=== PATIENT | male | born 1950 | race Caucasian/White ===

== ENCOUNTER 2017-02-05 06:35 | Day surgery (SDC) | payer MEDICARE, BC ==
[~2017-02-05] VITALS: Ht 177.8 cm; Wt 97.2 kg
[~2017-02-05 06:35] MED LIST: ALLOPURINOL100 MG PO; AMBIEN 10MG10 MG PO; AMOXICILLIN 8751 TAB PO; ASPIR-LOW81 MG PO; ASPIRIN 81M81 MG/TA2 PO; CALCIUM + D 6001 TA1 PO; CALCIUM + D 6001 TAB PO; CARAFATE 1GM1 G PO; CARDI-OMEGA1000 MG PO; CARDURA 2MG2 MG PO; CARDURA4 MG PO; CENTRUM SILVER1 TA1 PO; CRESTOR 10MG10 MG PO; DOXAZOCIN; DUO-KAPS1 CAP PO; FISH OIL CONC1000 MG PO; FISH OIL CONCEN1 SG1 PO; FLOMAX 0.40.4 MG/CAP PO; INDERAL40 MG PO; MAGNESIUM250 M1 PO; NAUSEA MED; NORCO 325 MG-51 TAB PO; PRILOSEC 20MG20 MG PO; SIMVASTATIN10 MG PO; VENOFER; ZYLOPRIM 100MG100 MG PO; cholesterol med
[2017-02-05 06:57] VITALS: BP 167/87; PULSE 67; TEMP 97.9
[2017-02-05] MEDS ORDERED: DESYREL 50MG50 MG PO (07:30)
[2017-02-05] MEDS ORDERED: REMERON 15M15 MG/TA1 PO (07:31)
[2017-02-05 08:35] VITALS: BP 135/71; PULSE 64; TEMP 97.8
[2017-02-05 09:00] VITALS: BP 131/74; PULSE 97
[2017-02-05 09:15] VITALS: BP 125/72; PULSE 95
[2017-02-05 09:30] VITALS: BP 147/78; PULSE 64
[2017-02-05 09:35] VITALS: BP 107/64; PULSE 63
[2017-03-03] MEDS ORDERED: ASPIRIN 81M81 MG/TA2 PO (12:33)
[2017-03-03] MEDS ORDERED: VITAMIN E1000 U/CAP PO (12:34)
== END 2017-02-05 09:45 | disposition home or self-care (01) ==
LOC: SDCO 06:35
DX: Z12.11 Encounter for screening for malignant neoplasm of colon (principal); D50.9 Iron deficiency anemia, unspecified; K21.9 Gastro-esophageal reflux disease without esophagitis; K25.3 Acute gastric ulcer without hemorrhage or perforation; K31.89 Other diseases of stomach and duodenum; K57.30 Diverticulosis of large intestine without perforation or abscess without bleeding; I10 Essential (primary) hypertension; Z86.010 Personal history of colon polyps; Z90.49 Acquired absence of other specified parts of digestive tract; Z93.4 Other artificial openings of gastrointestinal tract status
CPT/HCPCS: 43239; G0105; J2250; J3010

== ENCOUNTER → 2018-08-16 | Outpatient (CLI) | payer MEDICARE, OTHER ==
[~2018-08-16] MED LIST changes: +DESYREL 50MG50 MG PO; +REMERON 15M15 MG/TA1 PO; +VITAMIN E1000 U/CAP PO
== END ==
LOC: COL.RAD 13:53
DX: I67.89 Other cerebrovascular disease (principal); F80.1 Expressive language disorder
CPT/HCPCS: A9585

== ENCOUNTER 2018-08-24 15:39 | Emergency (ER) | payer MEDICARE, OTHER ==
[~2018-08-24] VITALS: Ht 175.3 cm; Wt 84.5 kg
[2018-08-24 15:44] VITALS: TEMP 97
[2018-08-24 16:55] LABS: BASO # 0.1 (0.0-0.2); BASO % 0.8 % (0.0-2.0); EOS # 0.2 (0.0-0.7); EOS % 3.4 % (0-4.0); GRAN # 4.4 (1.4-6.5); GRAN % 68.3 % (42.2-75.2); HEMOGLOBIN 11.4 g/dl (13.5-18.0); LYMPH % 16.1 % (20.0-51.0); MEAN CELL VOLUME 85 fl (80.0-100.0); MEAN CORPUSCULAR HEMOGLOBIN 27 pg (27.0-31.0); MEAN CORPUSCULAR HGB CONC 32 g/dl (33.0-37.0); MEAN PLATELET VOLUME 9.6 fl (7.4-10.4); MONO # 0.7 (0.1-0.6); MONO % 10.8 % (1.7-9.3); PLATELET COUNT 184 K/mm3 (130-400); RED BLOOD COUNT 4.24 M/mm3 (4.20-5.60); REDCELL DISTRIBUTION WIDTH-CV 17.5 % (11.5-14.5)
[2018-08-24 16:56] LABS: HEMATOCRIT 36.1 % (42.0-52.0)
[2018-08-24 17:35] LABS: ALANINE AMINOTRANSFERASE 34 U/L (21-72); ALBUMIN 3.1 gm/dL (3.5-5.0); ALKALINE PHOSPHATASE 172 U/L (50-136); ANION GAP 4 mmol/L (7-16); AST,SGOT 42 U/L (15-37); BILIRUBIN,TOTAL 0.4 mg/dL (0.0-1.0); BLOOD UREA NITROGEN 9 mg/dL (9-20); CALCIUM 8.7 mg/dL (8.4-10.2); CARBON DIOXIDE 26 mmol/L (22-30); CHLORIDE 98 mmol/L (98-107); GLUCOSE 102 mg/dL (74-106); POTASSIUM 4.2 mmol/L (3.4-5.0); SODIUM 129 mmol/L (137-145); TOTAL PROTEIN 6.2 gm/dL (6.4-8.2)
[2018-08-24 17:51] LABS: TROPONIN-I < 0.012 ng/mL (0.000-0.034)
[2018-08-24] MEDS ORDERED: PLAVIX 75MG TAB75 MG PO (18:03)
[2018-08-24] MEDS ORDERED: MAGNESIUM250 M1 PO ×2 (18:06)
[2018-08-24] MEDS ORDERED: CALCIUM 600-D 61 TAB PO (18:06)
[2018-08-24] MEDS ORDERED: EPA FISH OIL1 SGL PO (18:07)
[2018-08-24] MEDS ORDERED: MULTI VITAMINS1 TAB PO (18:07)
[2018-08-24 19:25] VITALS: BP 135/72; PULSE 75
== END 2018-08-24 19:26 | disposition short-term general hospital (02) ==
LOC: COL.ER 15:39
PROVIDERS: Emergency Medicine
DX: I69.351 Hemiplegia and hemiparesis following cerebral infarction affecting right dominant side (principal); I69.328 Other speech and language deficits following cerebral infarction; I10 Essential (primary) hypertension; E78.5 Hyperlipidemia, unspecified; Z79.02 Long term (current) use of antithrombotics/antiplatelets
CPT/HCPCS: A9585

== ENCOUNTER 2018-09-12 12:38 | Outpatient (RCR) | payer MEDICARE, OTHER ==
[~2018-09-12 12:38] MED LIST changes: +CALCIUM 600-D 61 TAB PO; +EPA FISH OIL1 SGL PO; +MULTI VITAMINS1 TAB PO; +PLAVIX 75MG TAB75 MG PO
== END 2018-09-27 10:12 | disposition home or self-care (01) ==
LOC: WSST 12:38
DX: I69.328 Other speech and language deficits following cerebral infarction (principal); I10 Essential (primary) hypertension

== ENCOUNTER 2018-10-01 13:52 | Emergency (ER) | payer MEDICARE, OTHER ==
[~2018-10-01] VITALS: Ht 175.3 cm; Wt 86.4 kg
[2018-10-01 13:58] VITALS: TEMP 97.3
[2018-10-01 14:26] LABS: BASO % 0.5 % (0.0-2.0); EOS # 0.1 (0.0-0.7); EOS % 1.5 % (0-4.0); GRAN % 79.4 % (42.2-75.2); LYMPH # 0.6 (1.2-3.4); LYMPH % 8.2 % (20.0-51.0); MEAN CELL VOLUME 84 fl (80.0-100.0); MEAN CORPUSCULAR HEMOGLOBIN 27 pg (27.0-31.0); MEAN CORPUSCULAR HGB CONC 32 g/dl (33.0-37.0); MEAN PLATELET VOLUME 9.4 fl (7.4-10.4); MONO # 0.7 (0.1-0.6); MONO % 9.7 % (1.7-9.3); PLATELET COUNT 160 K/mm3 (130-400); RED BLOOD COUNT 3.77 M/mm3 (4.20-5.60); REDCELL DISTRIBUTION WIDTH-CV 15.9 % (11.5-14.5)
[2018-10-01 14:28] LABS: HEMATOCRIT 31.6 % (42.0-52.0)
[2018-10-01 14:32] LABS: INR 1.3 (0.8-3.0); PROTHROMBIN TIME 14.9 SECONDS (9.7-12.8)
[2018-10-01 14:52] LABS: ALBUMIN 1.8 gm/dL (3.5-5.0); BILIRUBIN,TOTAL 0.3 mg/dL (0.0-1.0); CALCIUM 7.5 mg/dL (8.4-10.2); CREATININE, serum 0.86 mg/dL (0.66-1.25); POTASSIUM 4.5 mmol/L (3.4-5.0); TOTAL PROTEIN 4.6 gm/dL (6.4-8.2)
[2018-10-01 15:20] VITALS: BP 127/67; PULSE 78
[2018-10-01] MEDS ORDERED: FERROUS SU325 MG/TAB PO (17:08)
== END 2018-10-01 15:21 | disposition home or self-care (01) ==
LOC: COL.ER 13:52
PROVIDERS: Emergency Medicine
DX: R04.0 Epistaxis (principal); K21.9 Gastro-esophageal reflux disease without esophagitis; C16.9 Malignant neoplasm of stomach, unspecified; Z79.02 Long term (current) use of antithrombotics/antiplatelets

== ENCOUNTER 2018-10-01 16:44 | Emergency (ER) | payer MEDICARE, OTHER ==
[~2018-10-01] VITALS: Ht 175.3 cm; Wt 86.4 kg
[2018-10-01 16:49] VITALS: TEMP 97.9
[2018-10-01] MEDS ORDERED: FERROUS SU325 MG/TAB PO (17:08)
[2018-10-01 18:01] VITALS: BP 119/76; PULSE 79
== END 2018-10-01 18:02 | disposition home or self-care (01) ==
LOC: COL.ER 16:44
DX: R04.0 Epistaxis (principal); I25.10 Atherosclerotic heart disease of native coronary artery without angina pectoris; Z79.02 Long term (current) use of antithrombotics/antiplatelets

== ENCOUNTER 2018-10-03 16:36 | Emergency (ER) | payer MEDICARE, OTHER ==
[~2018-10-03] VITALS: Ht 175.3 cm; Wt 87.3 kg
[~2018-10-03 16:36] MED LIST changes: +FERROUS SU325 MG/TAB PO
[2018-10-03 16:38] VITALS: TEMP 97.7
[2018-10-03 17:03] LABS: BASO % 0.3 % (0.0-2.0); EOS % 0.6 % (0-4.0); GRAN # 5.5 (1.4-6.5); GRAN % 82.8 % (42.2-75.2); LYMPH # 0.6 (1.2-3.4); LYMPH % 9.5 % (20.0-51.0); MEAN CELL VOLUME 85 fl (80.0-100.0); MEAN CORPUSCULAR HGB CONC 31 g/dl (33.0-37.0); MEAN PLATELET VOLUME 9.6 fl (7.4-10.4); MONO # 0.4 (0.1-0.6); MONO % 6.2 % (1.7-9.3); PLATELET COUNT 185 K/mm3 (130-400); RED BLOOD COUNT 3.56 M/mm3 (4.20-5.60); REDCELL DISTRIBUTION WIDTH-CV 15.7 % (11.5-14.5)
[2018-10-03 17:04] LABS: HEMATOCRIT 30.2 % (42.0-52.0); HEMOGLOBIN 9.4 g/dl (13.5-18.0); MEAN CORPUSCULAR HEMOGLOBIN 26 pg (27.0-31.0)
[2018-10-03 17:18] LABS: ALBUMIN 2.2 gm/dL (3.5-5.0); BILIRUBIN,TOTAL 0.3 mg/dL (0.0-1.0); C-REACTIVE PROTEIN 1.6 mg/dL (0.0-0.9); CALCIUM 7.8 mg/dL (8.4-10.2); CREATININE, serum 0.8 mg/dL (0.66-1.25); POTASSIUM 4.1 mmol/L (3.4-5.0); TOTAL PROTEIN 5.4 gm/dL (6.4-8.2)
[2018-10-03 21:58] VITALS: BP 155/87; PULSE 69
== END 2018-10-03 21:59 | disposition short-term general hospital (02) ==
LOC: COL.ER 16:36
PROVIDERS: Family Medicine
DX: J90 Pleural effusion, not elsewhere classified (principal); C16.9 Malignant neoplasm of stomach, unspecified; I26.99 Other pulmonary embolism without acute cor pulmonale; R55 Syncope and collapse; Z79.02 Long term (current) use of antithrombotics/antiplatelets
CPT/HCPCS: J7030; Q9967

== ENCOUNTER 2018-10-14 09:13 | Emergency (ER) | payer MEDICARE, OTHER ==
[~2018-10-14] VITALS: Ht 175.3 cm; Wt 86.4 kg
[2018-10-14 09:19] VITALS: TEMP 98.7
[2018-10-14] MEDS ORDERED: CEPHALEXIN500 M1 PO (09:45)
[2018-10-14 09:49] LABS: BASO % 0.7 % (0.0-2.0); EOS # 0.1 (0.0-0.7); EOS % 1.6 % (0-4.0); GRAN # 4.1 (1.4-6.5); GRAN % 70.4 % (42.2-75.2); HEMATOCRIT 29.9 % (42.0-52.0); HEMOGLOBIN 9.1 g/dl (13.5-18.0); LYMPH # 0.8 (1.2-3.4); LYMPH % 14.1 % (20.0-51.0); MEAN CELL VOLUME 82 fl (80.0-100.0); MEAN CORPUSCULAR HEMOGLOBIN 25 pg (27.0-31.0); MEAN CORPUSCULAR HGB CONC 30 g/dl (33.0-37.0); MEAN PLATELET VOLUME 10.2 fl (7.4-10.4); MONO # 0.7 (0.1-0.6); MONO % 12.7 % (1.7-9.3); PLATELET COUNT 180 K/mm3 (130-400); RED BLOOD COUNT 3.66 M/mm3 (4.20-5.60); REDCELL DISTRIBUTION WIDTH-CV 15.7 % (11.5-14.5)
[2018-10-14 09:54] LABS: INR 2.4 (0.8-3.0); PROTHROMBIN TIME 27.5 SECONDS (9.7-12.8)
[2018-10-14 09:57] LABS: PARTIAL THROMBOPLASTIN TIME 42.2 SECONDS (26.0-37.0)
[2018-10-14 09:59] LABS: CALCIUM 7.3 mg/dL (8.4-10.2); CREATININE, serum 0.81 mg/dL (0.66-1.25); POTASSIUM 3.8 mmol/L (3.4-5.0)
[2018-10-14] MEDS ORDERED: AMOXICILLIN 50500 MG PO (10:25)
[2018-10-14] MEDS ORDERED: BIAXIN 500MG T500 MG PO (10:26)
[2018-10-14] MEDS ORDERED: LOVENOX 100100 MG/ML SQ (10:26)
[2018-10-14] MEDS ORDERED: JANTOVEN2 MG (10:27)
[2018-10-14 10:32] VITALS: BP 131/84; PULSE 76
== END 2018-10-14 10:40 | disposition home or self-care (01) ==
LOC: COL.ER 09:13
PROVIDERS: Emergency Medicine
DX: R04.0 Epistaxis (principal); Z79.01 Long term (current) use of anticoagulants

== ENCOUNTER 2018-10-17 15:44 | Inpatient (IN) | payer MEDICARE, OTHER ==
[~2018-10-17] VITALS: Ht 175.3 cm; Wt 84.1 kg
[~2018-10-17 15:44] MED LIST changes: +AMOXICILLIN 50500 MG PO; +BIAXIN 500MG T500 MG PO; +CEPHALEXIN500 M1 PO; +JANTOVEN2 MG; +LOVENOX 100100 MG/ML SQ
[2018-10-17 16:51] LABS: BASO % 0.4 % (0.0-2.0); EOS # 0.1 (0.0-0.7); EOS % 1.3 % (0-4.0); GRAN # 3.9 (1.4-6.5); GRAN % 74.4 % (42.2-75.2); LYMPH # 0.7 (1.2-3.4); LYMPH % 12.9 % (20.0-51.0); MEAN CELL VOLUME 79 fl (80.0-100.0); MEAN CORPUSCULAR HGB CONC 32 g/dl (33.0-37.0); MEAN PLATELET VOLUME 10.1 fl (7.4-10.4); MONO # 0.5 (0.1-0.6); MONO % 9.8 % (1.7-9.3); PLATELET COUNT 185 K/mm3 (130-400); RED BLOOD COUNT 3.73 M/mm3 (4.20-5.60); REDCELL DISTRIBUTION WIDTH-CV 15.9 % (11.5-14.5)
[2018-10-17 17:06] LABS: ALANINE AMINOTRANSFERASE 46 U/L (21-72); ALBUMIN 2.2 gm/dL (3.5-5.0); ALKALINE PHOSPHATASE 561 U/L (50-136); ANION GAP 4 mmol/L (7-16); AST,SGOT 47 U/L (15-37); BILIRUBIN,TOTAL 0.4 mg/dL (0.0-1.0); BLOOD UREA NITROGEN 15 mg/dL (9-20); C-REACTIVE PROTEIN 2.5 mg/dL (0.0-0.9); CALCIUM 7.5 mg/dL (8.4-10.2); CARBON DIOXIDE 25 mmol/L (22-30); CHLORIDE 100 mmol/L (98-107); CREATININE, serum 0.81 mg/dL (0.66-1.25); GLUCOSE 111 mg/dL (74-106); SODIUM 129 mmol/L (137-145); TOTAL PROTEIN 5.4 gm/dL (6.4-8.2)
[2018-10-17 17:10] LABS: HEMATOCRIT 29.5 % (42.0-52.0); HEMOGLOBIN 9.3 g/dl (13.5-18.0); MEAN CORPUSCULAR HEMOGLOBIN 25 pg (27.0-31.0)
[2018-10-17 17:12] LABS: INR 3.6 (0.8-3.0); PROTHROMBIN TIME 41.2 SECONDS (9.7-12.8)
[2018-10-17 17:15] LABS: TROPONIN-I < 0.012 ng/mL (0.000-0.035)
--- NOTE | 2018-10-17 20:50 | NUR ---
Patient arrived to room 306. Patient ambulatory, alert and oriented x4. Sitting up.
[2018-10-17 20:59] VITALS: BP 116/61; PULSE 85; TEMP 97.9
--- NOTE | 2018-10-17 21:47 | NUR ---
PT ASKED FOR TX. STATED HE FELT BETTER AFTER TX.
--- NOTE | 2018-10-17 22:28 | NUR ---
Assessment completed- lung sounds- some course sounds heard. Patient has cough- non productive at this time. Denies pain. Heart sounds S1 and S2 heard. Pulses +3. Pt reports tingling in right toes- unable to move around toes. Pt reports dizziness when standing. Alert and oriented x4. IV site to left AC free of complications- flushed and no redness/edema. No further needs at this time.
[2018-10-17 23:55] VITALS: BP 111/51; PULSE 77; TEMP 98.1
--- NOTE | 2018-10-18 02:24 | NUR ---
PT REFUSED. WANTS TO SLEEP.
[2018-10-18 04:17] VITALS: BP 140/63; PULSE 81; TEMP 98.7
--- NOTE | 2018-10-18 05:20 | NUR ---
Patient slept on/off last night. Some mild N/V, relieved on its own. Still reports numbness in right toes, still unable to move them much. No reports of pain, VSS.
[2018-10-18 06:10] LABS: BASO % 0.4 % (0.0-2.0); EOS # 0.1 (0.0-0.7); EOS % 1.7 % (0-4.0); GRAN # 3.2 (1.4-6.5); GRAN % 66.9 % (42.2-75.2); LYMPH # 0.9 (1.2-3.4); LYMPH % 19.5 % (20.0-51.0); MEAN CELL VOLUME 80 fl (80.0-100.0); MEAN CORPUSCULAR HGB CONC 31 g/dl (33.0-37.0); MEAN PLATELET VOLUME 10.9 fl (7.4-10.4); MONO # 0.5 (0.1-0.6); MONO % 10.4 % (1.7-9.3); PLATELET COUNT 171 K/mm3 (130-400); RED BLOOD COUNT 3.15 M/mm3 (4.20-5.60)
[2018-10-18 06:11] LABS: INR 3.3 (0.8-3.0); PROTHROMBIN TIME 37.9 SECONDS (9.7-12.8)
[2018-10-18 06:13] LABS: HEMATOCRIT 25.3 % (42.0-52.0); HEMOGLOBIN 7.8 g/dl (13.5-18.0); MEAN CORPUSCULAR HEMOGLOBIN 25 pg (27.0-31.0)
[2018-10-18 06:20] LABS: ALANINE AMINOTRANSFERASE 39 U/L (21-72); ALBUMIN 1.7 gm/dL (3.5-5.0); ALKALINE PHOSPHATASE 461 U/L (50-136); ANION GAP 2 mmol/L (7-16); AST,SGOT 33 U/L (15-37); BILIRUBIN,TOTAL < 0.1 mg/dL (0.0-1.0); BLOOD UREA NITROGEN 15 mg/dL (9-20); CALCIUM 7.1 mg/dL (8.4-10.2); CARBON DIOXIDE 26 mmol/L (22-30); CHLORIDE 105 mmol/L (98-107); CREATININE, serum 0.79 mg/dL (0.66-1.25); GLUCOSE 87 mg/dL (74-106); POTASSIUM 3.7 mmol/L (3.4-5.0); SODIUM 133 mmol/L (137-145); TOTAL PROTEIN 4.3 gm/dL (6.4-8.2)
[2018-10-18 08:14] VITALS: BP 130/65; PULSE 85; TEMP 98.9
--- NOTE | 2018-10-18 08:44 | NUR ---
Pt is awake and A/Ox4, resting in bed. He states he is having some mild shortness of breath after coughing spells. States the tessalon perles are working for cough. He denies pain. Saline lock to left AC is free of complications. Pt remains on room air, resp. even and unlabored at rest. Some mild dyspnea noted after coughing. Lungs are coarse with insp/exp. wheezing noted. Pt was updated on plan of care, expressed understnaidn. Denies any other needs.
[2018-10-18 11:16] LABS: COLLECTION METHOD CLEAN CATCH
[2018-10-18 11:31] LABS: MUCOUS Present /lpf; PH 6 (5-8); SQUAMOUS EPITHELIAL None Seen /hpf; URINE APPEARANCE Clear; URINE BACTERIA None Seen /hpf; URINE BILIRUBIN Negative (NEGATIVE); URINE BLOOD 2+ (NEGATIVE); URINE COLOR Yellow; URINE GLUCOSE Negative (NEGATIVE); URINE KETONE Negative (NEGATIVE); URINE LEUKOCYTE ESTERASE Negative (NEGATIVE); URINE NITRATE Negative (NEGATIVE); URINE PROTEIN(semi-quant) Negative (NEGATIVE); URINE UROBILINOGEN Negative (NEGATIVE)
[2018-10-18 12:15] VITALS: BP 116/56; PULSE 88; TEMP 97.9
--- NOTE | 2018-10-18 14:36 | NUR ---
SW met with patient about discharge planning. Patient lives at home with his son. Patient's PCP is Dr Valentin Soni and he [facility]. Patient recently started using a cane for ambulation but no other DME is reported. Patient also does not use any home health services. Patient has a DPOA and copies are in the EMR. NAVEEN does not anticipate any discharge needs.
[2018-10-18 16:51] VITALS: BP 140/59; PULSE 68; TEMP 97.7
[2018-10-18 20:21] VITALS: BP 150/79; PULSE 108; TEMP 98.5
--- NOTE | 2018-10-18 21:00 | NUR ---
Patient resting in bed watching tv. Denies pain. Assessment completed, IV site flushed, no redness/edema. Coughing- unable to produce any sputum. Evening medications administered. No further needs at this time.
[2018-10-18 23:12] VITALS: BP 138/76; PULSE 94; TEMP 98.5
[2018-10-19] VITALS (9 sets, daily range): BP systolic 120–157; BP diastolic 63–82; PULSE 79–941; TEMP 97.3–98.5
--- NOTE | 2018-10-19 01:58 | NUR ---
RA SPO2 80%. PLACED ON 2 LPM NC 92% RN NOTIFIED
--- NOTE | 2018-10-19 05:34 | NUR ---
Patient had difficulty sleeping last night. Cough kept him awake for some of the night. Last night during rounds RT put on 2L of oxygen as Sp02 had dropped into the 80's while sleeping. No reports of pain. No further needs at this time.
[2018-10-19 06:03] LABS: RETIC # 0.05 M/mm3 (0.02-0.16); RETIC % 1.7 % (0.5-3.52)
[2018-10-19 06:04] LABS: MEAN CELL VOLUME 81 fl (80.0-100.0); MEAN CORPUSCULAR HGB CONC 30 g/dl (33.0-37.0); MEAN PLATELET VOLUME 9.9 fl (7.4-10.4); PLATELET COUNT 161 K/mm3 (130-400); RED BLOOD COUNT 3.11 M/mm3 (4.20-5.60); REDCELL DISTRIBUTION WIDTH-CV 16.1 % (11.5-14.5)
[2018-10-19 06:14] LABS: HEMATOCRIT 25.3 % (42.0-52.0); HEMOGLOBIN 7.7 g/dl (13.5-18.0); MEAN CORPUSCULAR HEMOGLOBIN 25 pg (27.0-31.0)
[2018-10-19 06:31] LABS: ALBUMIN 1.8 gm/dL (3.5-5.0); BILIRUBIN,TOTAL 0.2 mg/dL (0.0-1.0); CALCIUM 7.1 mg/dL (8.4-10.2); CREATININE, serum 0.74 mg/dL (0.66-1.25); POTASSIUM 4.1 mmol/L (3.4-5.0); TOTAL PROTEIN 4.5 gm/dL (6.4-8.2)
[2018-10-19 06:32] LABS: INR 1.6 (0.8-3.0); PROTHROMBIN TIME 18.2 SECONDS (9.7-12.8)
[2018-10-19 07:03] LABS: IRON,SERUM 11 ug/dL (35-150); TOTAL IRON BINDING CAPACITY 206 ug/dL (261-462)
[2018-10-19 07:23] LABS: FERRITIN 5 ng/mL (18-464)
[2018-10-19 08:16] LABS: BAND 8 % (0-10); EOSINOPHIL 3 % (0-4); LYMPHOCYTE 17 % (20.0-51.0); NEUTROPHILS 72 % (42.0-75.2); OVALOCYTES 1+
[2018-10-19 08:17] LABS: PLATELET ESTIMATE NORMAL (NORMAL)
--- NOTE | 2018-10-19 08:39 | NUR ---
Pt assessment complete. Pt laying in bed upon entry, he is A/O x3. His breathing is even and unlabored on 2L O2 via NC. Pt reports dyspnea at rest. No pain at this time. Pt denies N/V. Reports chronic N/T to RLE. No edema. Pt asking about thoracentesis, POC discussed with patient. No further needs, call light within reach.
[2018-10-19 13:25] LABS: PLEURAL FLUID RBC 2000 /mm3 (0-0); PLEURAL FLUID WBC 1041 /mm3
[2018-10-19 13:27] LABS: PLEURAL FLUID APPEARANCE HAZY; PLEURAL FLUID COLOR YELLOW
[2018-10-19 13:34] LABS: GLUCOSE,PLEURAL FLUID 23 mg/dL
[2018-10-19 13:40] LABS: TOTAL PROTEIN,PLEURAL FLUID < 2.0 gm/dL
[2018-10-19 13:41] LABS: CARCINOEMBRYONIC ANTIGEN 8.1 ng/mL (0.0-5.0)
--- NOTE | 2018-10-19 16:29 | NUR ---
Talked with pt at length this afternoon about his cancer and frustration at not knowing what stage it is. Pt is very clear that if it is advanced--stage 4, he will not take treatments or try to figiht it but rather focous on taking care of his family before he dies. He just wants to know for sure that his cancer is as bad as people think it is. He has talked with his ex and explained his wishes but wants a definitive answer before he talks with other family members. We talked briefly about hospice services and the [facility] which is what he is considering. We talked about how frustrating it is to just not have the final answer about "how bad it is". he know the CT suggests bone mets and that the fluid on his lungs suggests mets. he does understand that his CEA was elevated and that he is feeling worse as time goes on.
--- NOTE | 2018-10-19 18:26 | NUR ---
Pt resting comfortably with friend at bedside. Continues to have wet cough. Intermittent pain with cough and deep inspiration. Site CDI. POC discussed with patient who verbalizes understanding. VSS. Call light within reach.
--- NOTE | 2018-10-19 19:22 | NUR ---
Patient resting in bed about to eat dinner. Denies pain. States he feels much better today after getting fluid drained. Assessment completed, VSS. IV site shows no redness/edema. Evening medications will be administered shortly.
--- NOTE | 2018-10-19 19:58 | NUR ---
Elevated heart rate, notified by telemetry. HR 140's. Patient ambulating to restroom. Now returned to bed. Blood pressure obtained of 110/73. Heart rate steadily declining, now at 125.
[2018-10-20] VITALS (19 sets, daily range): BP systolic 127–163; BP diastolic 72–100; PULSE 82–116; TEMP 97.5–98.6
--- NOTE | 2018-10-20 05:05 | NUR ---
Pt slept on/off last night. Somewhat elevated BP. Patient still fairly weak, will become tachycardic when ambulating. Still c/o of cough, but able to sleep.
[2018-10-20 06:40] LABS: MEAN CELL VOLUME 81 fl (80.0-100.0); MEAN CORPUSCULAR HGB CONC 30 g/dl (33.0-37.0); MEAN PLATELET VOLUME 10.6 fl (7.4-10.4); PLATELET COUNT 172 K/mm3 (130-400); RED BLOOD COUNT 3.14 M/mm3 (4.20-5.60); REDCELL DISTRIBUTION WIDTH-CV 16.1 % (11.5-14.5)
[2018-10-20 06:41] LABS: INR 1.4 (0.8-3.0); PROTHROMBIN TIME 16.1 SECONDS (9.7-12.8)
[2018-10-20 06:45] LABS: HEMATOCRIT 25.4 % (42.0-52.0); HEMOGLOBIN 7.6 g/dl (13.5-18.0); MEAN CORPUSCULAR HEMOGLOBIN 24 pg (27.0-31.0)
[2018-10-20 06:46] LABS: CALCIUM 7.2 mg/dL (8.4-10.2); CREATININE, serum 0.67 mg/dL (0.66-1.25); POTASSIUM 4.1 mmol/L (3.4-5.0)
--- NOTE | 2018-10-20 09:21 | NUR ---
Pt assessment complete. Pt laying in bed with ex at bedside. Pt is A/O x3. His breathing is even and unlabored on RA. Pt reports occasional SOB, continued wet cough. Lower back soreness reported. Chronic N/T to R hand and R foot. No N/V. POC discussed with patient and his friend. Cintia at bedside to speak with them. Call light within reach.
--- NOTE | 2018-10-20 09:41 | NUR ---
SPOKE TO KATERIN REGARDING TIME AND CONSENT FOR ILIAC BONE BIOPSY. CONSENT IS IN THE COMPUTER. PROCEDURE AT 1100
[2018-10-20 09:57] LABS: BAND 1 % (0-10); LYMPHOCYTE 22 % (20.0-51.0); METAMYELOCYTE 1 % (0-0); NEUTROPHILS 70 % (42.0-75.2); NUCLEATED RED BLOOD CELL 1 (0-6)
[2018-10-20 09:58] LABS: ANISOCYTOSIS 1+; PLATELET ESTIMATE NORMAL (NORMAL)
--- NOTE | 2018-10-20 10:01 | NUR ---
Met with pt and his ex- at bedside. They are aware we are waiting on testing and bone biopsy to be done today to give us definitive information about the stage of his cancer and are agreeable to this. They did have questions about hospice benefits and about [facility]. They have some legal issues that they are planning on addressing in the near future. Printed information was provided about Homecare and Hospice services and the medicare benefit. Support provided and will continue to follow during hospital stay.
--- NOTE | 2018-10-20 10:24 | NUR ---
Call placed to Dr. Gallagher who does not want to proceed with a L humerus biopsy, will plan to have Iliac bone biopsy.
--- NOTE | 2018-10-20 11:01 | NUR ---
Pt wheeled down for bone biopsy at this time.
--- NOTE | 2018-10-20 11:15 | NUR ---
PT ON THE TABLE. TIMEOUT DONE.
--- NOTE | 2018-10-20 11:20 | NUR ---
PT GIVEN 1MG VERSED AND 50 MCG FENTAYAL. PT EXPRESSED THANKS. PT SATS DROPPED TO 89%, [id number]. OCCASSIONAL PVC
--- NOTE | 2018-10-20 11:30 | NUR ---
PT TOLERATING PROCEDURE WELL
--- NOTE | 2018-10-20 11:35 | NUR ---
PT GIVEN 25 MCG FENTANYAL FOR PAIN. PT DID NOT GIVE NUMBER
--- NOTE | 2018-10-20 11:40 | NUR ---
PT CONT WITH PAIN, GIVEN 25 MCG FENTAYAL. PT EXPRESSES THANKS.
--- NOTE | 2018-10-20 11:45 | NUR ---
PROCEDURE COMPLETED. SITE CLEANED AND BANDAIDE PLACED. REPORT CALLED TO KATERIN MEJIA. PT ASSISTED TO WHEELCHAIR AND TAKEN UPSTAIRS.
--- NOTE | 2018-10-20 15:14 | NUR ---
Pt going for placement of IVC filter.
--- NOTE | 2018-10-20 15:58 | NUR ---
SEE MERGE FOR MEDICATION ADMIN TIMES AND INTRA AND POST SEDATION RASS/CONSCIOUS SEDATION SCORES/ASSESSMENTS
--- NOTE | 2018-10-20 19:35 | NUR ---
Pt report given to JACKIE Howell. Pt tolerated procedures well today. Do drainage to iliac site or R groin. Pt reporting pain to lower back, 02/06. PRN pain medication to be administered. VSS, pt on and off of O2 through the day. POC discussed with patient and his friend.
--- NOTE | 2018-10-20 20:00 | NUR ---
pt resting in bed with exwife at bedside. reports pain in back- prn meds given. phenergan given before pain med- reports no N/V. lung bases bilateral have crackles and wheezing. reports no SOA. no BM today. no needs at this time. call light in reach
[2018-10-21] VITALS (7 sets, daily range): BP systolic 124–156; BP diastolic 64–88; PULSE 81–111; TEMP 97.3–98.5
--- NOTE | 2018-10-21 02:49 | NUR ---
PT REFUSED IV CHANGE. IV IN LEFT AC FLUSHES WELL, NO SWELLING. NO REDNESS.
--- NOTE | 2018-10-21 03:18 | NUR ---
RESPIRATORY REPORTED PT 89% WITHOUT O2. PLACED PT ON 2L O2 SAT AT 92%. NO NEEDS AT THIS TIME. CALL LIGHT IN REACH
--- NOTE | 2018-10-21 05:26 | NUR ---
PT had an uneventful night, slept throughout night. reports minimal pain. no N/V. pt 89% O2 sat while sleeping RT placed pt on 2L- sat 92%. refused IV change. L AC flushes well, no redness. no needs at this time. call light in reach
--- NOTE | 2018-10-21 05:56 | NUR ---
pt went to the BR reported feeling soa heart rate in 150s. Fauzia HENRIQUEZ notified- and states "keep pt's activity to a minimum. use BSC."
[2018-10-21 06:34] LABS: MEAN CELL VOLUME 81 fl (80.0-100.0); MEAN CORPUSCULAR HGB CONC 30 g/dl (33.0-37.0); PLATELET COUNT 170 K/mm3 (130-400); RED BLOOD COUNT 3.15 M/mm3 (4.20-5.60); REDCELL DISTRIBUTION WIDTH-CV 16.4 % (11.5-14.5)
[2018-10-21 06:36] LABS: HEMATOCRIT 25.5 % (42.0-52.0); HEMOGLOBIN 7.7 g/dl (13.5-18.0); MEAN CORPUSCULAR HEMOGLOBIN 24 pg (27.0-31.0)
[2018-10-21 06:43] LABS: CALCIUM 7.2 mg/dL (8.4-10.2); CREATININE, serum 0.63 mg/dL (0.66-1.25); POTASSIUM 3.6 mmol/L (3.4-5.0)
[2018-10-21 06:55] LABS: INR 1.5 (0.8-3.0)
[2018-10-21 07:26] LABS: BAND 8 % (0-10); EOSINOPHIL 2 % (0-4); LYMPHOCYTE 18 % (20.0-51.0); METAMYELOCYTE 2 % (0-0); NEUTROPHILS 62 % (42.0-75.2); NUCLEATED RED BLOOD CELL 1 (0-6)
[2018-10-21 07:28] LABS: ANISOCYTOSIS 1+; HYPOCHROMIA 1+
[2018-10-21 07:29] LABS: PLATELET ESTIMATE NORMAL (NORMAL)
--- NOTE | 2018-10-21 07:39 | NUR ---
report given to JACKIE Berman. pt reports no needs
--- NOTE | 2018-10-21 08:30 | NUR ---
Initial assessment completed with this patient. Droplet precautions in place. This nurse assisted the patient with switching out his bed for comfort reasons. A work order was placed to look at replacing the mattress. No pain or needs at this time.
--- NOTE | 2018-10-21 09:27 | NUR ---
Pt is resting today "feeling about the same". He is still awaiting results from pleural fluid and bone biopsy to help clarify his decision. At this time his sonis with his exwife trying to pass his drivers test to help take some pressure off of his dad. Pt and are dealing with their community outreach manager trying to get various issues dealt with sooner rather than later. Pt's decisions are still unclear until biopsy results are back but does not plan to pursue treatment and will pursue comfort care if cancer is at stage 4. May choose to go home for a while but would consider hospice house if needs extra assistance.
--- NOTE | 2018-10-21 11:44 | NUR ---
SW attended clinical rounds. Patient is awaiting biopsy results. Depending on what those results say, patient may choose to go home with hospice services.
--- NOTE | 2018-10-21 19:06 | NUR ---
No change throughout the shift. Dr. Hawthorne here to see the patient and discuss biopsy results. The family plans to look into hospice house also for comfort purposes. Report given to JACKIE Gardner to resume care. The call light is in place.
--- NOTE | 2018-10-21 19:12 | NUR ---
Report received from JACKIE Berman. Resting in bed with family at bedside. Denies needs at this time. Call light in reach.
--- NOTE | 2018-10-21 21:07 | NUR ---
Resting in bed. Assessment complete. Left lower lobe diminished otherwise clear. Bandaide at thoracentesis site clean and dry. Heart sounds normal. Bowels active x4. Bilateral lower extremity edema +1. INT to left AC flushes well. Reports 3/10 pain in right hip increasing to 7/10 with movement. Requested PRN diluadid later this evening before bed to help sleep. Tearful but talkitive about current health status and possible hospice. Denies other needs. Call light in reach.
--- NOTE | 2018-10-21 23:26 | NUR ---
Patient requested PRN diluadid for 6/10 pain in right hip. INT left AC leaking when flushed. Attempted X2 to start new IV. JACKIE Matias in room. Checked INT site and redressed. INT continues to leak when flushed. Patient would not like to have IV site if possible or keep current site and not take IV medications. Spoke with MARTINEZ Cage. Okay'd patient to not have INT site as patient has refused. Added oral dilaudid for pain control. Verified with patient-patient does not want INT site and would like removed. Removed at this time. Verbally confirmed patient DNR status. Denies other needs at this time. Call light in reach.
--- NOTE | 2018-10-22 00:35 | NUR ---
Reports oral dilaudid has helped with pain. Denies other needs at this time. Call light in reach.
--- NOTE | 2018-10-22 02:45 | NUR ---
Resting in bed, denies needs. Call light in reach.
--- NOTE | 2018-10-22 04:11 | NUR ---
Patient asleep in bed with lights off. Skipped 0400 vitals to allow patient adequate rest as patient has been awake most of the night. Call light within reach.
--- NOTE | 2018-10-22 05:51 | NUR ---
Uneventful night. IV site discontinued throughout night. Oral dilaudid provided once. Patient emotional and tearful at times coping with diagnosis. Openly talked with staff. Slept from 0300 to 0545. Denied needs. Reports mild hip pain but "would like to hold off for now" on pain medication. Call light in reach.
[2018-10-22 05:58] LABS: MEAN CELL VOLUME 81 fl (80.0-100.0); MEAN CORPUSCULAR HGB CONC 30 g/dl (33.0-37.0); MEAN PLATELET VOLUME 9.7 fl (7.4-10.4); PLATELET COUNT 194 K/mm3 (130-400); RED BLOOD COUNT 3.32 M/mm3 (4.20-5.60); REDCELL DISTRIBUTION WIDTH-CV 16.6 % (11.5-14.5)
[2018-10-22 06:20] LABS: CALCIUM 7.3 mg/dL (8.4-10.2); CREATININE, serum 0.67 mg/dL (0.66-1.25); HEMATOCRIT 26.8 % (42.0-52.0); HEMOGLOBIN 7.9 g/dl (13.5-18.0); MEAN CORPUSCULAR HEMOGLOBIN 24 pg (27.0-31.0); POTASSIUM 3.6 mmol/L (3.4-5.0)
--- NOTE | 2018-10-22 07:24 | NUR ---
Report given to JACKIE Olivia. Resting in bed asleep. Call light in reach.
[2018-10-22 08:14] VITALS: BP 133/75; PULSE 78; TEMP 98
[2018-10-22 09:07] LABS: INR 1.4 (0.8-3.0); PROTHROMBIN TIME 16.4 SECONDS (9.7-12.8)
--- NOTE | 2018-10-22 10:00 | NUR ---
Pt assessment complete. Pt laying in bed upon entry, ex at bedside. Pt is A/O x3. His breathing is even and unlabored on 2L O2 via NC. Pt has intermittent wet cough and dyspnea. Pain to lower back intermittently, refuses interventions at this time. Pt asking about Hospice care, social work coordinating with patient. Pt denies any further needs, call light within reach.
[2018-10-22 10:04] LABS: BAND 1 % (0-10); LYMPHOCYTE 16 % (20.0-51.0); NEUTROPHILS 80 % (42.0-75.2)
[2018-10-22 10:05] LABS: ANISOCYTOSIS 1+; HYPOCHROMIA 1+; OVALOCYTES 1+; PLATELET ESTIMATE NORMAL (NORMAL)
[2018-10-22] MEDS ORDERED: DILAUDID 2MG TAB2 MG PO (10:25)
[2018-10-22] MEDS ORDERED: ATIVAN 1MG T1 MG/TAB PO (10:25)
--- NOTE | 2018-10-22 10:51 | NUR ---
The patient opt to go to the [facility]. NAVEEN sent referral to [facility] at the [facility] and the patient was accepted for services. The patient is to discharge today, 10/22. NAVEEN contacted [facility] for transport and EMS will poultry picking machine tender the patient at 1200. The patient, and the patient's nurse were in agreeance. There are no additional needs at this time.
--- NOTE | 2018-10-22 11:57 | NUR ---
SW presented the IM form to the patient. The patient was in agreeance and signed the form.
--- NOTE | 2018-10-22 13:57 | NUR ---
Pt left via EMS at this time. Prescriptions sent with family. No IV at d'c.
== END 2018-10-22 14:03 | disposition hospice, inpatient (51) | DRG 356 ==
LOC: COL.ER 15:44 → MEDICAL 18:37
PROVIDERS: Emergency Medicine; Internal Medicine; Internal Medicine Pulmonary Disease; Nurse Practitioner Family; Physician Assistant
PROC: 0W9B3ZZ Drainage of Left Pleural Cavity, Percutaneous Approach (ICD-10-PCS; principal; 2018-10-19)
PROC: 06H03DZ Insertion of Intraluminal Device into Inferior Vena Cava, Percutaneous Approach (ICD-10-PCS; 2018-10-20)
PROC: 0QB33ZX Excision of Left Pelvic Bone, Percutaneous Approach, Diagnostic (ICD-10-PCS; 2018-10-20)
DX: C16.9 Malignant neoplasm of stomach, unspecified (principal); I26.99 Other pulmonary embolism without acute cor pulmonale; J91.0 Malignant pleural effusion; I69.351 Hemiplegia and hemiparesis following cerebral infarction affecting right dominant side; E87.1 Hypo-osmolality and hyponatremia; C79.72 Secondary malignant neoplasm of left adrenal gland; C79.51 Secondary malignant neoplasm of bone; E44.0 Moderate protein-calorie malnutrition; I10 Essential (primary) hypertension; D63.0 Anemia in neoplastic disease; Z66 Do not resuscitate; Z51.5 Encounter for palliative care; J20.5 Acute bronchitis due to respiratory syncytial virus; R53.0 Neoplastic (malignant) related fatigue; J32.0 Chronic maxillary sinusitis; B96.81 Helicobacter pylori [H. pylori] as the cause of diseases classified elsewhere
CPT/HCPCS: 99222-AI; 99232-AI; 99239; A4216; C1769; C1880; C1894; C9113; J0696; J1170; J1644; J1650; J2250; J2550; J2916; J3010; Q9967